=== PATIENT | female | born 2000 | race Caucasian/White ===

== ENCOUNTER → 2022-12-13 12:42 | Outpatient (CLI) | payer BC, SELFPAY ==
--- NOTE | ~2022-12-13 | US_ITS ---
US breast BI complete DATE: 12/13/2022 13:37 INDICATION: Family history of breast cancer TECHNIQUE: Real-time and color flow imaging of both complete breasts including all 4 quadrants and mcleod bareolar areas COMPARISON: None FINDINGS: There is dense echotexture in both breasts. Right breast 3-4:00 5 cm from nipple: There is a parallel circumscribed hypoechoic lesion measuring 3 .5 x 11 x 13.6 mm, with minimal internal vascularity on color flow imaging. There is no suspicious sh adowing. This is probably benign. Six-month targeted ultrasound follow-up is recommended. No suspicious mass or shadowing is detected elsewhere in either breast. IMPRESSION: Probably benign lesion of right breast at 3-4:00 5 cm from nipple Recommendation: 6 month targeted right breast ultrasound follow-up at 3-4:00 5 cm from nipple BI-RADS Category 3: Probably benign Reviewed, dictated and finalized at [facility]. Reviewed, dictated and finalized at [facility].
== END ==
PROVIDERS: PCP Obstetrics & Gynecology; Visit Provider Obstetrics & Gynecology
DX: R92.8 Other abnormal and inconclusive findings on diagnostic imaging of breast (principal); Z80.3 Family history of malignant neoplasm of breast
CPT/HCPCS: 76641

== ENCOUNTER → 2023-08-04 10:44 | Outpatient (CLI) | payer BC, SELFPAY ==
--- NOTE | ~2023-08-04 | US_ITS ---
US breast RT limited DATE: 08/04/2023 11:01 INDICATION: 3-4:00 right breast probably benign mass TECHNIQUE: Real-time imaging targeted right breast 3:00-4:00 5 cm from nipple COMPARISON: December 13, 2022 bilateral complete breast ultrasound examination FINDINGS: Stable parallel circumscribed hypoechoic approximately 3.5 x 1.3 x 1.6 cm lesion, without i nternal vascularity or posterior shadowing, not significant changed since December 13, 2022. IMPRESSION: BI-RADS Category 2: Benign Recommendation: Routine mammographic screening beginning at age 40 Reviewed, dictated and finalized at [facility]. Reviewed, dictated and finalized at [facility]. [employer] MANAGER
== END ==
PROVIDERS: PCP Obstetrics & Gynecology; Visit Provider Obstetrics & Gynecology
DX: R92.8 Other abnormal and inconclusive findings on diagnostic imaging of breast (principal)
CPT/HCPCS: 76642

== ENCOUNTER 2024-03-19 09:44 | Outpatient (CLI) | payer BC, SELFPAY ==
--- NOTE | ~2024-03-19 | US_ITS ---
US breast RT limited 03/19/2024 10:13 Indication: Family history of breast cancer. Follow-up right breast mass. Procedure: High-resolution Limited ultrasound of the right breast Comparison: Comparison to multiple prior studies sequentially, with oldest reviewed study dated 12/13. Findings: There is a stable oval hypoechoic mass with parallel orientation, no posterior features and no internal vascularity measuring 1.3 x 1.4 x 0.4 cm compared with 1.6 x 1.1 x 0.4 cm on 12/13/2022. Impression: 1: Stable benign-appearing right breast mass at 3-4:00, 5 cm from the nipple. BI-RADS CATEGORY 3-PROBABLY BENIGN FINDING RECOMMENDATION: 12 month follow-up Limited right breast ultrasound recommended. Reviewed, dictated and finalized at [facility]. Impression: 1: Stable benign-appearing right breast mass at 3-4:00, 5 cm from the nipple. BI-RADS CATEGORY 3-PROBABLY BENIGN FINDING RECOMMENDATION: 12 month follow-up Limited right breast ultrasound recommended.
== END 2024-03-19 09:45 ==
LOC: MICIMG 09:46
PROVIDERS: PCP Internal Medicine; Visit Provider Obstetrics & Gynecology
DX: R92.8 Other abnormal and inconclusive findings on diagnostic imaging of breast (principal)
CPT/HCPCS: 76642

== ENCOUNTER 2025-08-05 08:21 | Outpatient (CLI) | payer BC, SELFPAY ==
--- NOTE | ~2025-08-05 | US_ITS ---
EXAMINATION: US breast RT limited INDICATION: 25-year old female; BI-RADS 3, evaluate probably benign right breast mass. COMPARISON: 03/19/2024 through 12/13/2022 TECHNIQUE: Targeted sonographic evaluation of the probably benign mass in the right breast was completed. FINDINGS: A 1.22 x 0.37 x 1.13 cm circumscribed hypoechoic mass at 3:00 to 4:00 location 5 cm from the nipple in the RIGHT breast reidentified is unchanged. IMPRESSION: Benign right breast mass have demonstrated greater than 24 months stability since the initial evaluation on 12/13/2022. RECOMMENDATION: Clinical follow-up. Imaging can be obtained as clinically indicated. BI-RADS 2, BENIGN Reviewed, dictated and finalized at location [facility]. [employer] REQUIREMENTS WORKER IMPRESSION: Benign right breast mass have demonstrated greater than 24 months stability sin ce the initial evaluation on 12/13/2022. RECOMMENDATION: Clinical follow-up. Imaging can be obtained as clinically indicated. BI-RADS 2, BENIGN
== END 2025-08-05 08:22 | disposition home or self-care (01) ==
LOC: MICIMG 08:21
PROVIDERS: PCP Internal Medicine; Visit Provider Obstetrics & Gynecology
DX: R92.8 Other abnormal and inconclusive findings on diagnostic imaging of breast (principal)
CPT/HCPCS: 76642